=== PATIENT | female | born 1950 | race Asian ===

== ENCOUNTER 2016-08-27 07:30 | Outpatient (RCR) | payer OTHER | END 2016-09-07 | disposition home or self-care (01) | LOC: PTY 07:30 | DX: M75.101 Unspecified rotator cuff tear or rupture of right shoulder, not specified as traumatic (principal) ==

== ENCOUNTER 2016-09-08 08:45 | Outpatient (RCR) | payer OTHER | END 2016-10-05 | disposition home or self-care (01) | LOC: PTY 08:45 | DX: M75.101 Unspecified rotator cuff tear or rupture of right shoulder, not specified as traumatic (principal) ==

== ENCOUNTER 2016-10-07 08:17 | Outpatient (RCR) | payer OTHER | END 2016-11-05 | disposition home or self-care (01) | LOC: PTY 08:17 | DX: M75.101 Unspecified rotator cuff tear or rupture of right shoulder, not specified as traumatic (principal) ==

== ENCOUNTER 2016-11-19 08:30 | Outpatient (RCR) | payer OTHER | END 2016-12-05 | disposition home or self-care (01) | LOC: PTY 08:30 | DX: M75.101 Unspecified rotator cuff tear or rupture of right shoulder, not specified as traumatic (principal); M54.30 Sciatica, unspecified side ==

== ENCOUNTER 2016-12-07 08:20 | Outpatient (RCR) | payer OTHER | END 2017-01-05 | disposition home or self-care (01) | LOC: PTY 08:20 | DX: M75.101 Unspecified rotator cuff tear or rupture of right shoulder, not specified as traumatic (principal); M54.30 Sciatica, unspecified side ==

== ENCOUNTER 2017-01-10 08:30 | Outpatient (RCR) | payer OTHER | END 2017-02-04 | disposition home or self-care (01) | LOC: PTY 08:30 | DX: M75.101 Unspecified rotator cuff tear or rupture of right shoulder, not specified as traumatic (principal); M54.30 Sciatica, unspecified side ==